=== PATIENT | female | born 1985 ===

== ENCOUNTER 2018-01-12 17:35 | Emergency (ER) | payer MEDICAID, OTHER ==
[2018-01-12 17:55] VITALS: BP 145/88; PULSE 73; RESP 16; TEMP 98.2
[2018-01-12 17:59] VITALS: O2SAT 99
[2018-01-12] MEDS ORDERED: Sodium Chloride 0.9% 1,000 ML IV STA (19:14)
[2018-01-12 19:36] LABS: BASO # 0.1 K/uL (0.0-0.2); BASO % 0.9 % (0.0-2.0); EOS # 0.3 K/uL (0.0-0.7); EOS % 2.6 % (0.0-4.0); HEMOGLOBIN 14.3 g/dL (12.0-16.0); LYMPH # 3.1 K/uL (1.0-4.3); LYMPH % 27.3 % (20.0-40.0); MEAN CELL VOLUME 83.3 fl (81.0-99.0); MEAN CORPUSCULAR HEMOGLOBIN 27.9 pg (27.0-31.0); MEAN CORPUSCULAR HGB CONC 33.5 g/dL (33.0-37.0); MEAN PLATELET VOLUME 10.1 fl (7.2-11.7); MONO # 0.8 K/uL (0.0-0.8); MONO % 7.4 % (0.0-10.0); NEUT # 6.9 K/uL (1.8-7.0); NEUT % 61.8 % (50.0-75.0); RBC 5.12 Mil/uL (3.80-5.20); RED CELL DISTRIBUTION WIDTH 13.5 % (11.5-14.5); WHITE BLOOD COUNT 11.2 K/uL (4.8-10.8)
--- NOTE | 2018-01-12 19:37 | ED PDOC ---
HPI: Abdomen Time Seen by Provider: 01/12/18 18:37 Chief Complaint (Nursing): Abdominal Pain Chief Complaint (Provider): Abdominal Pain History Per: Patient History/Exam Limitations: no limitations Onset/Duration Of Symptoms: Days (x12) Current Symptoms Are (Timing): Still Present Location Of Pain/Discomfort: RUQ Additional Complaint(s): 32 y/o female with no significant PMHx presents to the ED for evaluation of abdominal pain, onset two weeks ago. Patient states pain has been intermittent but has become constant today. Patient states pain is in the right upper quadrant and radiates to the right flank. Patient reports pain worsens when eating and is associated with nausea and excessive belching. Patient reports of having blood work taken last week while at her PMD and results demonstrated abnormal liver function test. Ultrasound demonstrated gallbladder wall edema but no gallstones. Denies vomiting, diarrhea, constipation, urinary symptoms, vaginal discharge, bleeding, fever and chills. PMD: Stephen Villanueva Past Medical History Reviewed: Historical Data, Nursing Documentation, Vital Signs Vital Signs: Last Vital Signs Temp 98.2 F 01/12/18 17:54 Pulse 73 01/12/18 17:54 Resp 16 01/12/18 17:54 BP 145/88 01/12/18 17:54 Pulse Ox 99 01/12/18 21:58 - Medical History PMH: No Chronic Diseases - Surgical History Surgical History: (x3) - Family History Family History: States: No Known Family Hx - Social History Current smoker - smoking cessation education provided: Yes Alcohol: Occasional - Home Medications Home Medications: Ambulatory Orders Medication Instructions Recorded traMADol [Ultram] 50 mg PO TID PRN #15 tab 01/12/18 - Allergies Allergies/Adverse Reactions: Allergies Allergy/AdvReac Type Severity Reaction Status Date / Time No Known Allergies Allergy Verified 01/12/18 17:54 Review of Systems ROS Statement: Except As Marked, All Systems Reviewed And Found Negative Constitutional: Negative for: Fever, Chills Gastrointestinal: Positive for: Nausea, Abdominal Pain, Other (excessive belching). Negative for: Vomiting, Diarrhea, Constipation Genitourinary Female: Negative for: Vaginal Discharge, Vaginal Bleeding Musculoskeletal: Positive for: Back Pain (flank pain ) Physical Exam - Reviewed Nursing Documentation Reviewed: Yes Vital Signs Reviewed: Yes - Physical Exam Appears: Positive for: Non-toxic, In Acute Distress (mild, painful) Head Exam: Positive for: ATRAUMATIC, NORMOCEPHALIC Skin: Positive for: Warm, Dry Eye Exam: Positive for: EOMI, PERRL ENT: Positive for: Pharynx Is (clear) Neck: Positive for: Painless ROM, Supple Cardiovascular/Chest: Positive for: Regular Rate, Rhythm, Chest Non Tender. Negative for: Murmur Respiratory: Positive for: Normal Breath Sounds. Negative for: Wheezing Gastrointestinal/Abdominal: Positive for: Normal Exam, Soft, Tenderness (RUQ tenderness to palpation. (+) Stacey's Sign. (-) McBurney's Point Tenderness). Negative for: Mass, Guarding, Rebound Back: Positive for: R CVA Tenderness Extremity: Positive for: Normal ROM. Negative for: Deformity Lymphatic: Negative for: Adenopathy Neurologic/Psych: Positive for: Alert. Negative for: Motor/Sensory Deficits - Laboratory Results Result Diagrams: 01/12/18 19:30 01/12/18 19:30 - ECG O2 Sat by Pulse Oximetry: 99 (RA) Pulse Ox Interpretation: Normal Medical Decision Making Medical Decision Making: Time: 1929 Impression: RUQ Pain Differentials include but not limited to gallstones, pancreatitis, ulcer, hepatitis, UTI and renal colic Plan: -- CMP -- Lipase -- ED Urine -- ED Urine Dipstick -- CBC with differentials -- PTT -- Prothrombin Time -- Sodium Chloride IV 1000 mls/hr -- Pepcid 20 mg IVP -- Zofran Inj 4 mg IVP -- IV Insertion -- US Gallbladder & Hepatic EXAM: US Abdomen Limited, Right Upper Quadrant CLINICAL HISTORY: 32 years old, female; Pain; Abdominal pain; Epigastric; Additional info: Ruq pain TECHNIQUE: Real-time ultrasound of the right upper quadrant with image documentation. COMPARISON: No relevant prior studies available. FINDINGS: Liver: Unremarkable. No mass. No intrahepatic bile duct dilation. Gallbladder: Gallbladder is contracted and filled with stones. Negative sonographic Murray sign. Common bile duct: Unremarkable as visualized. No stones. No dilation. Pancreas: Unremarkable as visualized. Right kidney: Unremarkable. No stones. No solid mass. No hydronephrosis. IMPRESSION: Gallbladder is contracted and filled with stones. Negative sonographic Murray sign. Thank you for allowing us to participate in the care of your patient. Dictated and Authenticated by: Marco A Bermudez MD 01/12/2018 9:39 PM Eastern Time ([place] & [place]) Labs unremarkable DW pt findings and plan of care. Advised to keep journal of episodes of pain and followup with Surgery as soon as possible for discussion about elective cholecystectomy. Pt stable at this time for discharge requiring no further ER management. Scribe Attestation: Documented by Elizabeth Curry acting as a scribe for Yin Hinojosa MD. Provider Scribe Attestation: All medical record entries made by the Scribe were at my direction and personally dictated by me. I have reviewed the chart and agree that the record accurately reflects my personal performance of the history, physical exam, medical decision making, and the department course for this patient. I have also personally directed, reviewed, and agree with the discharge instructions and disposition. Disposition - Clinical Impression Clinical Impression: Cholelithiasis - Disposition Referrals: Kirk Villanueva [Primary Care Provider] - Kit Carlos MD [Staff Provider] - Disposition: Routine/Home Disposition Time: 21:40 Condition: STABLE Additional Instructions: CALL SURGEON SOON POSSIBLE TO SCHEDULE APPOINTMENT FOR FURTHER EVALUATION OF GALLSTONES Prescriptions: traMADol [Ultram] 50 mg PO TID PRN #15 tab PRN Reason: SEVERE PAIN ONLY Instructions: Gallstones (DC) Forms: [employer] (Chinese)
[2018-01-12 19:40] LABS: INR 1.1; PROTHROMBIN TIME 12.1 Seconds (9.8-13.1)
[2018-01-12 19:43] LABS: PARTIAL THROMBOPLASTIN TIME 38.2 Seconds (25.6-37.1)
[2018-01-12 19:46] LABS: ALB/GLOB RATIO 1.3 (1.0-2.1); ALBUMIN 4.8 g/dL (3.5-5.0); BLOOD UREA NITROGEN 12 mg/dl (7-17); CALCIUM 9.3 mg/dL (8.4-10.2); GFR NON-AFRICAN AMERICAN > 60; LIPASE 105 U/L (23-300)
[2018-01-12 19:51] LABS: ALT/SGPT 44 U/L (9-52); AST/SGOT 46 U/L (14-36)
--- NOTE | 2018-01-13 09:52 | US ---
Date of service: 01/12/2018 HISTORY: RUQ pain COMPARISON: None. TECHNIQUE: Sonographic evaluation of the right upper quadrant of the abdomen. FINDINGS: LIVER: Measures 16.1 cm in length. Mild diffuse increased echogenicity of the liver parenchyma. No mass. No intrahepatic bile duct dilatation. GALLBLADDER: The gallbladder is compacted and packed with multiple gallstones. No gallstones, wall thickening or pericholecystic fluid. The sonographic Murray's sign is negative. COMMON BILE DUCT: Measures 4.0 mm. No stones. No dilatation. PANCREAS: Obscured by bowel gas. No mass. No ductal dilatation. RIGHT KIDNEY: Measures 10.9 cm in length. Normal echogenicity. No calculus, mass, or hydronephrosis. AORTA: No aneurysmal dilatation. IVC: Unremarkable. OTHER FINDINGS: None . IMPRESSION: Cholelithiasis. Gallbladder is contracted which may be related to nonfasting status or chronic cholecystitis. Fatty liver. A preliminary report was provided by [employer].
== END 2018-01-12 22:11 | disposition home or self-care (01) ==
LOC: H.ER 17:35
DX: K80.20 Calculus of gallbladder without cholecystitis without obstruction (principal); F17.200 Nicotine dependence, unspecified, uncomplicated
CPT/HCPCS: 76705; 80053; 83690; 85025; 85610; 85730; 96361; 96374; 96375; 99284; J2405; J7030